=== PATIENT | female | born 1990 | race Caucasian/White ===

== ENCOUNTER 2016-11-17 18:27 | Emergency (ER) | payer OTHER ==
[~2016-11-17] VITALS: Wt 54.9 kg
[~2016-11-17 18:27] MED LIST: AUGMENTIN 875875 MG PO; BACTRIM DS 8001 TAB PO; BLEPH-10 15 ML15 ML OP; FE-TABS325 MG PO; IRON50 MG; KEFLEX500 MG PO; KENALOG0.1% TP; MOTRIN800 MG PO; MYCOLOG CREAM 115 GM PO; NKHM; PERCOCET 325 MG1 TA6 PO; PNV-SELECT1 TAB PO; TRAMADOL HCL50 MG PO; ZANTAC150 MG PO; ZITHROMAX Z PA250 MG PO; ZITHROMAX250 MG PO; ZOFRAN4 MG PO
== END 2016-11-17 19:11 | disposition home or self-care (01) ==
LOC: ED 18:27
DX: L02.415 Cutaneous abscess of right lower limb (principal); Z79.899 Other long term (current) drug therapy; Z91.018 Allergy to other foods

== ENCOUNTER 2017-11-13 13:49 | Emergency (ER) | payer OTHER ==
[~2017-11-13] VITALS: Ht 165.1 cm; Wt 61.2 kg
[2017-11-13 15:33] LABS: BILIRUBIN NEGATIVE (NEGATIVE); BLOOD TRACE-INTACT (NEGATIVE); CLARITY CLEAR (CLEAR); COLOR YELLOW (YELLOW); GLUCOSE NEGATIVE (NEGATIVE); KETONE NEGATIVE (NEGATIVE); LEUKO ESTERASE NEGATIVE (NEGATIVE); NITRITE NEGATIVE (NEGATIVE); PH 7.5 (5.0-9.0); SPECIFIC GRAVITY 1.015 (1.005-1.030); UROBILINOGEN 0.2 E.U./dl (0.2-1.0)
[2017-11-13 16:03] LABS: BACTERIA TRACE; EPITHELIAL CELLS 0-2
== END 2017-11-13 16:30 | disposition home or self-care (01) ==
LOC: ED 13:49
PROVIDERS: Nurse Practitioner
DX: T63.441A Toxic effect of venom of bees, accidental (unintentional), initial encounter (principal); R35.0 Frequency of micturition; R39.15 Urgency of urination; F17.200 Nicotine dependence, unspecified, uncomplicated; Z91.018 Allergy to other foods; Y92.89 Other specified places as the place of occurrence of the external cause

== ENCOUNTER → 2023-01-13 | Outpatient (CLI) | payer OTHER | END | disposition home or self-care (01) | LOC: US 00:26 | PROVIDERS: ATTEND Internal Medicine | DX: K80.20 Calculus of gallbladder without cholecystitis without obstruction (principal) ==

== ENCOUNTER 2024-04-15 09:42 | Emergency (ER) | payer SELFPAY ==
[~2024-04-15] VITALS: Ht 165.1 cm; Wt 61.2 kg
[~2024-04-15 09:42] MED LIST changes: +HYDROCODONE-AC1 EAC1 PO; +OMEPRAZOLE40 MG PO; +ONDANSETRON HYDR4 M1 PO
[2024-04-15] MEDS ORDERED: Ketorolac Tromethamine 30 MG/ML VIAL IM ONE (11:40)
[2024-04-15] MEDS ORDERED: NAPROSYN500 MG PO (11:44)
== END 2024-04-15 12:20 | disposition home or self-care (01) ==
LOC: ED 09:42
DX: S93.401A Sprain of unspecified ligament of right ankle, initial encounter (principal); F17.200 Nicotine dependence, unspecified, uncomplicated; Z91.018 Allergy to other foods; Z98.890 Other specified postprocedural states; W07.XXXA Fall from chair, initial encounter; Y93.89 Activity, other specified; Y92.89 Other specified places as the place of occurrence of the external cause; Y99.8 Other external cause status